=== PATIENT | female | born 1935 ===

== ENCOUNTER → 2016-09-04 | Outpatient (CLI) | payer MEDICARE, OTHER | END | disposition home or self-care (01) | LOC: PCVCCLINIC 16:00 | PROVIDERS: ATTEND Internal Medicine Cardiovascular Disease | DX: I10 Essential (primary) hypertension (principal); I35.8 Other nonrheumatic aortic valve disorders; E78.00 Pure hypercholesterolemia, unspecified; Z86.73 Personal history of transient ischemic attack (TIA), and cerebral infarction without residual deficits; Z79.82 Long term (current) use of aspirin; Z79.899 Other long term (current) drug therapy | CPT/HCPCS: 80061; 93005; G0463 ==

== ENCOUNTER → 2017-06-03 | Outpatient (CLI) | payer MEDICARE, OTHER | END | disposition home or self-care (01) | LOC: PCVCCLINIC 11:29 | DX: I10 Essential (primary) hypertension (principal); E78.00 Pure hypercholesterolemia, unspecified; I35.0 Nonrheumatic aortic (valve) stenosis; R94.31 Abnormal electrocardiogram [ECG] [EKG]; Z79.82 Long term (current) use of aspirin; Z79.899 Other long term (current) drug therapy | CPT/HCPCS: 80061; 93005; G0463 ==

== ENCOUNTER → 2017-12-01 | Outpatient (CLI) | payer MEDICARE, OTHER ==
--- NOTE | 2017-12-01 16:57 | PCVCIMAG ---
APPROVED REPORT Study performed: 12/01/2017 14:12:55 EXAM: Comprehensive 2D, Doppler, and color-flow Echocardiogram Patient Location: Echo lab Status: routine BSA: 1.74 HR: 76 bpmBP: 120/62 mmHg Rhythm: NSR Other Information Study Quality: Adequate Risk Factors: Cardiac Risk Factors: HTN Indications Palpitations Aortic sclerosis 2D Dimensions LVEF(%): 61.54 (>50%) IVSd: 11.40 (7-11mm)LVOT Diam: 20.30 (18-24mm) LVDd: 34.61 mm PWd: 10.46 (7-11mm)Ascending Ao: 30.23 (22-36mm) LVDs: 23.46 (25-40mm) Left Atrium: 36.64 (27-40mm) Aortic Root: 30.31 mm LV Single Plane 4CH: 58.34 % LV Single Plane 2CH: 58.46 %Allison's LVEF: 58.40 % Biplane EF: 58.5 % Volumes Left Atrial Volume (Systole) Single Plane 4CH: 60.62 mLSingle Plane 2CH: 55.18 mL LA ESV Index: 35.00 mL/m2 Aortic Valve AoV Peak Steve.: 2.26 m/s AO Peak Gr.: 20.43 mmHgLVOT Max P.72 mmHg AO Mean Gr.: 10.66 mmHgLVOT Mean P.03 mmHg AO V2 Mean: 1.53 m/sLVOT Max V: 1.09 m/s AO V2 VTI: 43.45 cmLVOT Mean V: 0.84 m/s ARMEN (VTI): 1.93 [id number] V1 VTI: 25.95 cm ARMEN Vmax: 1.56 cm2 SV (LVOT): 83.96 mL Mitral Valve E/A Ratio: 0.8 MV Decel. Time: 215.95 ms MV E Max Steve.: 0.86 m/s MV A Steve.: 1.10 m/s IVRT: 89.97 ms Pulmonary Valve PV Peak Steve.: 1.06 m/sPV Peak Gr.: 4.47 mmHg Pulmonary Vein P Vein S: 0.42 m/sP Vein A: 0.36 m/s P Vein D: 0.49 m/sP Vein A Dur.: 148.8 msec P Vein S/D Ratio: 0.86 Tricuspid Valve TR Peak Steve.: 3.04 m/s TR Peak Gr.: 36.99 mmHg Left Ventricle The left ventricle is normal size. There is normal LV segmental wall motion. There is normal left ventricular wall thickness. Left ventricular systolic function is normal. The left ventricular ejection fraction is within the normal range. LVEF is 55-60%. Grade I - abnormal relaxation pattern. Right Ventricle The right ventricle is normal size. The right ventricular systolic function is normal. Atria Left atrium is mildly dilated. Right atrium is mildly dilated. Aortic Valve Mild aortic valve sclerosis. No aortic regurgitation is present. There is trace valvular aortic stenosis. Calculated aortic valve area is 1.6 cm2 with maximum pressure gradient of 20 mmHg and mean pressure gradient of 11 mmHg. Mitral Valve The mitral valve is normal in structure. There is no mitral valve regurgitation noted. No evidence of mitral valve stenosis. Tricuspid Valve The tricuspid valve is normal in structure. Mild to moderate tricuspid regurgitation with PAP of 44 mmHg. Pulmonic Valve The pulmonary valve is normal in structure. There is mild pulmonic valvular regurgitation. Great Vessels The aortic root is normal in size. IVC is normal in size and collapses with >50% inspiration Pericardium There is no pericardial effusion. There is no pleural effusion. <Conclusion> The left ventricle is normal size. LVEF is 55-60%. The right ventricle is normal size. Left atrium is mildly dilated. Right atrium is mildly dilated. Mild aortic valve sclerosis. There is trace valvular aortic stenosis. Calculated aortic valve area is 1.6 cm2 with maximum pressure gradient of 20 mmHg and mean pressure gradient of 11 mmHg. There is no mitral valve regurgitation noted. Mild to moderate tricuspid regurgitation with PAP of 44 mmHg. The aortic root is normal in size. There is no pericardial effusion.
== END | disposition home or self-care (01) ==
LOC: PCVCIMAG 16:23
PROVIDERS: ATTEND Internal Medicine Cardiovascular Disease
DX: I35.0 Nonrheumatic aortic (valve) stenosis (principal); E78.00 Pure hypercholesterolemia, unspecified; I35.8 Other nonrheumatic aortic valve disorders; I10 Essential (primary) hypertension; Z79.82 Long term (current) use of aspirin
CPT/HCPCS: 80061; 93005; 93306; G0463